=== PATIENT | male | born 1990 | race African-American/Black ===

== ENCOUNTER 2016-09-17 10:51 | Emergency (ER) ==
--- NOTE | 2016-09-17 11:46 | PROVIDER DOCUMENTATION ---
HPI-Psychological Disorder - General Chief Complaint: Psych Stated Complaint: REQ PSYCH EVAL Time Seen by Provider: 09/17/16 11:27 Allergies/Adverse Reactions: Patient Allergies Allergy/AdvReac Type Severity Reaction Status Date / Time duloxetine HCl * Allergy Unknown Verified 05/23/12 17:11 [From Cymbalta] Sulfa (Sulfonamide Allergy Unknown Verified 05/23/12 17:11 Antibiotics) [Sulfa(Sulfonamide Antibiotics)] Home Medications: Home Medication List Medication Instructions Recorded Confirmed Last Taken Type No Home Medications 12/10/15 09/17/16 Unknown History - History of Present Illness-Psych Nature of Presenting Problem: Pt with h/o paranoid schizophrenia but takes no medications. Not with psychosis today but social problems to include homelessness. He has not taken any medications for the last 8 months. Denies any paranoid delusions, no auditory nor visual hallucinations and no SI/HI. He is loose with conversation but easy to direct and answers questions well. Onset/Duration: reports: other Timing: reports: improving Situational problems related to:: reports: other (living situation) Psychiatric Complaints: reports: depressed, insomnia. denies: angry, agitated, hallucinating, hostile, homicidal thoughts, paranoid, suicidal ideation Substance Use: reports: marijuana Previous psych related hospitalizations?: Yes Similar Symptoms Previously?: Yes Review of Systems - Adult - REVIEW OF SYSTEMS - ADULT Constitutional: denies: chills, fever Eyes: reports: no symptoms reported Ears, Nose, Mouth & Throat: reports: no symptoms reported Cardiovascular: reports: no symptoms reported Respiratory: denies: cough, shortness of breath Gastrointestinal: denies: diarrhea, vomiting Genitourinary: reports: no symptoms reported Musculoskeletal: reports: no symptoms reported Integumentary: reports: no symptoms reported Neurological: denies: headache/migraines, seizure Psychiatric: reports: depression, insomnia. denies: suicidal thoughts Endocrine: reports: no symptoms reported Hematologic/Lymphatic: reports: no symptoms reported Allergic/Immunologic: reports: no symptoms reported All Other Systems: Reviewed and Negative Past History - Adult - PAST MEDICAL HISTORY-ADULT Review of Records: reports: Old Records Reviewed, Nursing Assessment Review, Medications Reviewed Psychiatric: reports: schizophrenia - PRIOR SURGERIES/PROCEDURES Surgical/Procedure History: reports: none - SOCIAL HISTORY Smoking: less than 1 pack/day Substance Use: marijuana Living Situation: homeless Physical Exam-Psych Focus - Physical Exam-Psych Initial Vital Signs Reviewed: Yes Appearance: appropriate appearance, appropriate insight, neat. negative: anxious, combative, disheveled Neurological: alert, calm, depressed affect, flat Behavior/Eye Contact/Speech: cooperative, avoids eye contact. negative: uncooperative Thoughts/Hallucinations: no apparent hallucination, flight of ideas (mild looseness with conversation). negative: obsessive, paranoid HENMT: normocephalic/atraumatic, moist mucous membranes, normal ENT inspection Neck: non-tender, full range of motion, supple Respiratory: lungs clear, normal breath sounds Cardiovascular: normal peripheral pulses, no edema Abdominal Exam: soft, no organomegaly Lymphatic: no adenopathy. negative: enlargement Extremity: normal range of motion, non-tender Integumentary: normal color, warm/dry Progress - CONSULTS/PCP/HOSPITALIST Notification #1 *Consult/PCP/Hospitalist*: [facility] Time Discussed: 12:43 Consult Disposition: Will see in ED, other (was not a candidate for admission per [facility]) Departure - Departure Time of Disposition Order: 14:[id number] DIAGNOSIS: Paranoid schizophrenia, chronic condition Disposition: HOME 01 Certified Medical Emergency: Emergent Condition: Stable Additional Instructions: Follow up with local area mental health. ED Follow Up Instructions: You have been treated by a care provider in the Emergency Department. These instructions are being provided to you so you can have an understanding of how to care for yourself upon discharge. Upon discharge from the Emergency Department, you are responsible for making arrangements for follow-up care by a physician of your choice. Take all prescribed medications as directed. Return to the Emergency Department immediately for any new or worsening symptoms. You may call the Physician Referral phone number at [phone] to obtain a list of Physicians who are taking new patients.
[2016-09-17 11:52] LABS: MANUAL DIFF NEEDED? NO
[2016-09-17 12:05] LABS: BASO% 0.8 % (0.0-0.8); EOS# 0.09 X1000 (0.0-0.7); EOS% 1.2 % (0.0-10.0); HEMATOCRIT 38.3 % (42.0-52.0); HEMOGLOBIN 13.5 g/dL (14.0-18.0); LYMPH# 2.09 X1000 (1.2-3.4); LYMPH% 28.6 % (20.5-51.1); MCHC 35.2 g/dL (33-37); MCV 82.4 FL (81-99); MONO# 0.56 X1000 (0.11-0.59); MONO% 7.7 % (1.7-9.3); MPV 10.5 FL (7.4-10.4); NEUT% 61.7 % (42.2-75.2); PLT 235 X1000 (130-400); RBC 4.65 XMIL (4.7-6.1)
[2016-09-17 12:12] LABS: URINE CULTURE NEEDED? NO; URINE MICRO REVIEW NEEDED? NO; URINE SOURCE CLEAN CATCH
[2016-09-17 12:18] LABS: BILIRUBIN URINE NEGATIVE (NEGATIVE); BLOOD URINE NEGATIVE (NEGATIVE); COLOR YELLOW; GLUCOSE URINE NEGATIVE (NEGATIVE); LEUKOCYTES URINE NEGATIVE (NEGATIVE); NITRITE URINE NEGATIVE (NEGATIVE); PH URINE 7.5; PROTEIN URINE NEGATIVE (NEGATIVE); SP GRAVITY URINE 1.018; TURBIDITY URINE CLEAR (CLEAR); UROBILINOGEN URINE 2 mg/dL (NORMAL)
[2016-09-17 12:19] LABS: UR EPITHELIAL CELLS <10 /HPF (<10); URINE BACTERIA NEGATIVE /HPF; URINE RBC <10 /HPF (<10); URINE WBC <10 /HPF (<10)
[2016-09-17 12:20] LABS: AGAP 13; ALBUMIN 4.4 g/dL (3.5-5.0); ALKALINE PHOSPHATASE 78 U/L (32-122); BUN 10 mg/dL (8-22); CALCIUM 9.4 mg/dL (8.8-10.2); CHLORIDE 102 mmol/L (98-107); COSMO 279; GOT 38 U/L (10-34); GPT 19 U/L (10-44); POTASSIUM 3.7 mmol/L (3.5-5.1); SODIUM 140 mmol/L (136-145); TCO2 25 mmol/L (25-35); TOTAL BILIRUBIN 0.48 mg/dL (0.20-1.00); TOTAL PROTEIN 7.2 g/dL (6.3-8.3)
[2016-09-17 12:40] LABS: FREE T4 1.58 ng/dL (0.93-1.70)
[2016-09-17 13:07] LABS: UR AMPHETAMINES QUAL NONE DETECTED (NONE DETECT); UR BARBITUATES QUAL NONE DETECTED (NONE DETECT); UR BENZODIAZEPIN QUAL NONE DETECTED (NONE DETECT); UR CANNABINOIDS QUAL PRESUMPTIVE POSITIVE (NONE DETECT); UR COCAINE QUAL NONE DETECTED (NONE DETECT); UR METHADONE QUAL NONE DETECTED (NONE DETECT); UR OPIATES QUAL NONE DETECTED (NONE DETECT); UR OXYCODONE QUAL NONE DETECTED (NONE DETECT); UR PCP QUAL NONE DETECTED (NONE DETECT)
[2016-09-17 16:07] VITALS: BP 131/78
== END 2016-09-17 16:07 | disposition home or self-care (01) ==
LOC: ED 10:51
DX: F20.0 Paranoid schizophrenia (principal); F17.210 Nicotine dependence, cigarettes, uncomplicated
CPT/HCPCS: 80053; 81001; 82607; 84439; 84443; 85025; G0480; 80320; 80324; 80345; 80346; 80349; 80353; 80358; 80361; 80365; 83992